=== PATIENT | female | born 1995 | race Caucasian/White ===

== ENCOUNTER 2022-04-27 08:11 | Inpatient (IN) | payer BC, SELFPAY ==
[2022-04-27] VITALS (30 sets, daily range): BP systolic 91–132; BP diastolic 58–95; PULSE 92–130; RESP 16–39; TEMP 34.4–37.9; O2SAT 95–100
--- NOTE | 2022-04-27 | ECHO_ITS ---
Patient Info Name: Jorge Luis Gill Age: 26 years : 1995 Gender: Female Ht: 67 in Wt: 165 lbs BSA: 1.89 m2 HR: 110 bpm BP: 108 / 82 mmHg Heart Rhythm: Sinus Rhythm Technical Quality: Fair Exam Date: 04/27/2022 2:40 PM Exam Location: [facility] Patient Status: Inpatient Admit Date: 04/27/2022 Staff Ordering Physician: Bishop Palacios MD Chemical Process Engineer: Fe Evans RDCS Attending Provider: Mallorie Reid DO Exam Type: CA echo dop color flow w con Study Info Indications I46.9 - Cardiac arrest, cause unspecified Complete two-dimensional, color flow and Doppler transthoracic echocardiogram is performed with contrast to opacify the left ventricle and to improve the deliniation of the left ventricle endocardial borders. Contrast/Agitated Saline Contrast/Ag. Saline: Definity Amount: 3.00 ml Administered By: Fe Evans RDCS Existing IV Access: Yes IV Access Condition: patent with no signs of infiltration Summary 1. Definity contrast injected to improve visualization. 2. Normal left ventricular size and thickness with mildly reduced or at least low normal systolic function. 3. No valvular abnormalities. 4. Normal size and function of the right ventricle. Left Ventricle Left ventricular chamber dimension is normal. Left ventricular systolic function is mildly reduced, estimated at 40-45%. The left ventricular diastolic function is normal. Right Ventricle Right ventricular chamber dimension is normal. Left Atria Left atrial chamber dimension is normal. Right Atria Right atrial chamber dimension is normal. Aortic Valve The aortic valve is normal. Pulmonic Valve The pulmonic valve is normal. Mitral Valve The mitral valve has normal leaflets. Tricuspid Valve The tricuspid valve leaflets are normal. Pericardium/Pleural The pericardium appears normal. Aorta The aortic root size at the sinus of Valsalva is normal. Left Ventricular Outflow Tract Name Value Normal LVOT 2D LVOT Diameter 1.96 cm LVOT Doppler LVOT Peak Gradient 3 mmHg LVOT Mean Gradient 2 mmHg LVOT VTI 12.63 cm LVOT VTI/AV VTI Ratio 0.88 LVOT Stroke Volume 38.24 ml LVOT CO 4.25 l/min LVOT CI 2.25 L/min/m2 Pulmonic Valve Name Value Normal RVOT Doppler RVOT Peak Gradient 1 mmHg PV Doppler PV Peak Gradient 1 mmHg Mitral Valve Name Value Normal
--- NOTE | 2022-04-27 | ECG_ITS ---
Measurements Intervals [place] Rate: 93 P: 72 WY: 121 QRS: 78 QRSD: 97 T: 26 QT: 358 QTc: 447 Interpretive Statements SINUS RHYTHM NONSPECIFIC T-WAVE ABNORMALITY NO PREVIOUS ECG AVAILABLE FOR COMPARISON Electronically Signed On 04-28-2022 7:24:00 DENTAL OFFICE ASSISTANT by Mars Campos M.D.
--- NOTE | ~2022-04-27 | CT_ITS ---
EXAMINATION: CT cervical spine wo con DATE: 04/27/2022 09:44 INDICATION: Unresponsive. TECHNIQUE: Computed tomography (CT) of the cervical spine was performed without intravenous contrast. Automated exposure control and iterative reconstruction technique were employed. The dose-length pro duct was 292.61 mGy-cm. COMPARISON: None FINDINGS: The visualized portions of the lung apices demonstrate patchy airspace and groundglass opac ities and septal thickening. Partially visualized is dental disease. There is 10 degrees levoscoliosi s of cervical spine. Vertebral body heights and intervertebral disc heights are normal. At C7-T1, the re is mild bilateral facet joint osteoarthritis. No neural foraminal stenosis or central canal stenos is. IMPRESSION: 1. No fracture. 2. Cervical levoscoliosis. 3. Bilateral lung disease, consistent with pneumonia versus pulmonary edema. Reviewed, dictated and finalized at location E. ELECTRONIC TECHNICIAN
--- NOTE | ~2022-04-27 | XR_ITS ---
EXAMINATION: XR chest 1V portable DATE: 04/28/2022 06:11 INDICATION: Respiratory failure TECHNIQUE: frontal view of the chest was obtained. COMPARISON: Chest radiograph dated 04/27/2022 FINDINGS: Endotracheal tube tip 1.4 cm above the rema. Nasogastric tube extends below the left hemidiaphragm with distal tip collimated off the study. Slight increase in patchy airspace opacities throughout both lungs but to a lesser degree in the lowe r lung zones. No pleural effusion or pneumothorax. The cardiomediastinal silhouette is normal. Visual ized bones and soft tissues are unremarkable. IMPRESSION: 1. Scattered patchy bilateral airspace opacities concerning for pneumonia. Reviewed, dictated and finalized at location A. F REPORTER
--- NOTE | ~2022-04-27 | CT_ITS ---
EXAMINATION: CT abdomen pelvis wo con DATE: 04/27/2022 09:44 INDICATION: Patient found unresponsive, with lymphomatous on floor adjacent to patient. Vaginal bleed ing. Cardiopulmonary resuscitation was performed in route to the hospital. TECHNIQUE: Computed tomography (CT) of the abdomen and pelvis was performed without intravenous contr ast. Automated exposure control and iterative reconstruction technique were employed. Exam dose: 500 .19 mGy-cm total exam DLP. COMPARISON: 04/27/2022 portable supine AP view of the abdomen / CT abdomen pelvis FINDINGS: Prominent patchy consolidating infiltrates are noted in both lower lobes, right greater dylan n left, with infiltrate also identified in the middle lobe. Given the clinical presentation, aspirati on pneumonitis is a consideration, in addition to extensive bilateral pneumonia. Normal heart size. No pericardial or pleural effusion. A nasogastric tube is noted in the lower body of the stomach. The liver, gallbladder, bile ducts, spleen, pancreas, and adrenal glands and kidneys appear unremarka ble on this limited noncontrast examination. No urinary tract calculus or hydroureteronephrosis is ev ident. There is a catheter and small amount of associated air within the urinary bladder. The uterus and adn exal areas appear unremarkable. There is nondilated fluid containing distal small bowel. There is some fluid content within the cecum . The appendix appears normal. No bowel obstruction or free air is detected IMPRESSION: Extensive patchy consolidation at the lower lobes, particularly dependent regions, as we ll as mild middle lobe infiltrate. Diffusion diagnosis includes aspiration pneumonitis versus bilater al pneumonia NG tube in lower body of stomach Martinez catheter in urinary bladder Reviewed, dictated and finalized at Location A. Reviewed, dictated and finalized at location B. NE DEVELOPER IMPRESSION: Extensive patchy consolidation at the lower lobes, particularly de pendent regions, as well as mild middle lobe infiltrate. Diffusion diagnosis in cludes aspiration pneumonitis versus bilateral pneumonia NG tube in lower body of stomach Martinez catheter in urinary bladder
--- NOTE | ~2022-04-27 | XR_ITS ---
EXAMINATION: XR chest ET placement, XR abdomen NG/feed tube insert DATE: 04/27/2022 08:13 INDICATION: Endotracheal tube placement and nasogastric tube placement post code TECHNIQUE: 1. Portable AP supine view of the chest was obtained. 2. Portable AP supine view of the abdomen was obtained. COMPARISON: None FINDINGS: Endotracheal tube tip 5.6 cm above the rema. Nasogastric tube tip in proximal side port in the body of the stomach. Mild opacities in the bilateral perihilar and right suprahilar regions. No pleural effusion or pneumo thorax. The cardiomediastinal silhouette is normal. Visualized bones and soft tissues are unremarkabl e. No dilated loops of gas-filled bowel in the abdomen. IMPRESSION: 1. Endotracheal tube tip 5.6 cm above the rema which is acceptable, but when clinically stabilized would consider advancement by 3 cm. 2. Mild opacities in the bilateral perihilar regions and right suprahilar regions which could represe nt atelectasis, pneumonia or mild pulmonary edema. Reviewed, dictated and finalized at location A. H WASHER IMPRESSION: 1. Endotracheal tube tip 5.6 cm above the rema which is acceptable, but when clinically stabilized would consider advancement by 3 cm. 2. Mild opacities in the bilateral perihilar regions and right suprahilar regio ns which could represent atelectasis, pneumonia or mild pulmonary edema.
--- NOTE | ~2022-04-27 | XR_ITS ---
EXAMINATION: XR chest 1V portable DATE: 04/30/2022 06:34 INDICATION: Respiratory failure. TECHNIQUE: A single frontal view of the chest was obtained. COMPARISON: Chest single view 04/29/2022, CT abdomen and pelvis 04/27/2022 FINDINGS: There are airspace and interstitial opacities in all lung zones bilaterally with relative s paring of the lung bases. No pleural effusion or pneumothorax. The heart size is normal. IMPRESSION: 1. Stable diffuse lung disease, consistent with pneumonia. Reviewed, dictated and finalized at location A. ING WHEEL RAKER
--- NOTE | ~2022-04-27 | CT_ITS ---
EXAMINATION: CT brain wo con DATE: 04/27/2022 09:43 INDICATION: Unresponsive. TECHNIQUE: Computed tomography (CT) of the head was performed without intravenous contrast. The mA wa s adjusted according to patient size. Iterative reconstruction technique was employed. The dose-lengt h product was 681.00 mGy-cm. COMPARISON: Head CT 06/14/2016 FINDINGS: There is mild motion artifact. There is no intracranial hemorrhage, acute infarction, or ab normal intracranial mass lesion. The ventricles are normal in size. The orbits are normal. Partially visualized is dental disease. There is mild mucosal thickening in the paranasal sinuses. The orbits a re normal. The mastoid air cells are normal. IMPRESSION: 1. Normal brain. Reviewed, dictated and finalized at location E. INTEGRATION ARCHITECT IMPRESSION: 1. Normal brain.
--- NOTE | ~2022-04-27 | US_ITS ---
US renal BI 04/27/2022 19:43 Procedure: Realtime transabdominal ultrasound of the kidneys and bladder. Indication: Acute renal insufficiency Comparison: No prior studies for comparison. Findings: Renal echotexture is normal bilaterally without hydronephrosis, contour deforming mass or r enal calculus. The right kidney measures 11 cm and left kidney measures 10.7 cm. Bladder not well di stended for evaluation. Impression: 1: Unremarkable renal ultrasound. No stones, masses or hydronephrosis. Reviewed, dictated and finalized at location A. ITY ASSEMBLER Impression: 1: Unremarkable renal ultrasound. No stones, masses or hydronephrosis.
--- NOTE | ~2022-04-27 | XR_ITS ---
EXAMINATION: XR chest 1V portable DATE: 05/01/2022 06:37 INDICATION: Respiratory failure. TECHNIQUE: A single frontal view of the chest was obtained. COMPARISON: Chest single view 04/30/2022 FINDINGS: There is a diffuse reticulonodular pattern in the lungs. No pleural effusion or pneumothora x. The heart size is normal. IMPRESSION: 1. Stable diffuse reticulonodular pattern in the lungs, consistent with pneumonia. Reviewed, dictated and finalized at location A. LIANCE AUDITOR IMPRESSION: 1. Stable diffuse reticulonodular pattern in the lungs, consistent with pneumon ia.
--- NOTE | ~2022-04-27 | XR_ITS ---
EXAMINATION: XR chest 1V portable DATE: 04/29/2022 06:25 INDICATION: Respiratory failure TECHNIQUE: frontal view of the chest was obtained. COMPARISON: Chest radiograph dated 04/28/2022 FINDINGS: Slight interval increase in density of patchy bilateral airspace opacities throughout both lungs cons istent with pneumonia. Linear discoid atelectasis at the medial left lung base. No pleural effusion o r pneumothorax. The cardiomediastinal silhouette is normal. IMPRESSION: 1. Slight progression in patchy bilateral airspace disease which based history of unresponsive episod e is most concerning for worsening pneumonia related to aspiration with differential including less l ikely pulmonary edema. Reviewed, dictated and finalized at location A. ER OPERATOR IMPRESSION: 1. Slight progression in patchy bilateral airspace disease which based history of unresponsive episode is most concerning for worsening pneumonia related to a spiration with differential including less likely pulmonary edema.
[2022-04-27 07:54] LABS: Hematocrit 44.9 % (37.0-47.0); Hemoglobin 13.5 g/dL (12.0-15.0); Mean Corpuscular HGB Conc 30.1 g/dl (32-36); Mean Corpuscular Hemoglobin 30.4 pg (26-34); Mean Corpuscular Volume 101.1 fl (80-100); Mean Platelet Volume 10.6 fl (7.4-10.4); Platelet Count Result 255 k/mm3 (150-375); Red Blood Count 4.44 M/mm3 (4.2-5.4); Red Cell Distribution Width 12.5 % (11.5-14.5); White Blood Count 21.3 K/mm3 (4.5-10.0)
--- NOTE | 2022-04-27 07:54 | ED.CPR ---
HPI - CPR General Chief Complaint: Cardiac Arrest/CPR Stated Complaint: cardiac arrest Source: EMS Mode of arrival: EMS History of Present Illness HPI narrative: 30 years old white female came to the emergency room by ambulance with cardiac arrest and CPR was in process. EMS telling me that they got a phone call from somebody who told them that the patient found unresponsive on the floor of the bathroom half naked. And last time he have seen her was last night. No specific or definite duration or times. EMT is telling me that the lanny is confused and poor historian. Narcan was given at that time, and patient was agitated for a minute then became unresponsive, pulseless. Patient was intubated/LMA, CPR protocol applied. On arrival to the ED they monitor showing tachyarrhythmia, pulseless, PEA. CPR protocol in process, V. fib, cardiac shock once, normal sinus rhythm, pulse is back. Blood glucose was 21, D50 IV x2, orotracheal intubation, 7.5 cm, patient noted that she have blood at the vaginal area, pelvic exam showed no intravaginal laceration, blood is coming out of the external os which could be secondary to menstrual cycle. Hypothermia protocol applied. Until this time of dictation, the police department is working on identifying the patient name and her family. Related Data Home Medications Medication Instructions Recorded Confirmed No Home Medications 04/27/22 04/27/22 Allergies Allergy/AdvReac Type Severity Reaction Status Date / Time No Known Allergies Allergy Verified 04/27/22 10:07 Review of Systems Review of Systems: ROS unobtainable: Yes unobtainable due to endotracheal tube, unobtainable due to medical condition and unobtainable due to mental status Exam Narrative: General appearance: Well-developed, well-nourished, unresponsive, pulseless Skin: Normal color Head: Normocephalic, nontraumatic Eyes: Clear conjunctiva pupils are dilated not reactive to light ENT: Oropharynx normal, ears normal, dried blood at the nostrils Neck: No c-collar on on arrival to the ED Chest and respiratory: CPR in process Heart: CPR in process Abdomen: Soft, no organomegaly, no bowel sounds Vascular: Pulseless Musculoskeletal: Unresponsive, pulseless Neurologic: Unresponsive, pulseless Course Consultations Consultation #1: Dr. Hernandez Date: 04/27/22 Time: 10:24 Consultation #2: DR WRIGHT Date: 04/27/22 Time: 10:24 Vital Signs Vital signs: Vital Signs Temperature 34.4 C L 04/27/22 07:33 Pulse Oximetry 98 04/27/22 07:33 Oxygen Delivery Bag Valve Mask 04/27/22 07:33 Temperature 36.0 C L 04/27/22 08:46 Pulse Rate 92 04/27/22 08:48 Respiratory Rate 36 H 04/27/22 08:46 Blood Pressure 132/78 04/27/22 08:46 Pulse Oximetry 100 04/27/22 08:48 Oxygen Delivery Mechanical Ventilation 04/27/22 08:48 Fraction of Inspired Oxygen 100 04/27/22 08:48 Procedures Intubation Intubation #1: Intubation Date: 04/27/22 Intubation Time: 08:55 Time out performed: Yes (10) sedative: none Laryngoscope: fiber optic video scope Tube Size (cm): 7.5 Method of Intubation: orotracheal Number of Attempts: 1 Tube Placement Confirmation: visualized tube passing through cords Patient Tolerated Procedure: well Intubation Complications: none MDM - Cardiac Arrest/CPR Lab Data 04/27/22 07:47 04/27/22 07:46 Labs: Lab Results 04/27/22 04/27/22 04/27/22 Range/Units 07:46 07:46 07:46 WBC (4.5-10.0) K/mm3 RBC (4.2-5.4) M/mm3 Hgb (12.0-15.0) g/dL Hct (37.0-47.0) % MCV (80-100) fl MCH (26-34) pg MCHC (32-36) g/dl RDW (11.5-14.5) % Plt Count (150-375) k/mm3 MPV (7.4-10.4) fl Immature Gran % (Auto) Neut % (Auto)
[2022-04-27 08:09] LABS: INR 1.6; Prothrombin Time 18.7 Seconds (11.1-14.7)
[2022-04-27 08:10] LABS: Alanine Aminotransferase 39 U/L (6-35); Alkaline Phosphatase 74 U/L (38-126); Anion Gap 17 mmol/L (8-16); Aspartate Amino Transferase 72 U/L (14-36); Bilirubin,Total 0.8 mg/dL (0.2-1.3); Blood Urea Nitrogen 14 mg/dL (7-17); Carbon Dioxide 21 mmol/L (22-30); Chloride 99 mmol/L (98-107); Estimated Glomerular Filt Rate 28; Glucose 54 mg/dL (65-110); Lipase 85 U/L (23-300); Partial Thromboplastin Time 36.1 SECONDS (22.3-36.8); Sodium 137 mmol/L (137-145)
[2022-04-27] MEDS: MIDAZOLAM HCL (*CRX) 2 MG/2 ML VIAL 4 MG (08:10)
[2022-04-27] MEDS: MIDAZOLAM HCL (*CRX) 10 MG/2 ML VIAL 4 MG IV PUSH ×2 (08:10→08:33)
[2022-04-27 08:22] LABS: Band Neutrophils Percent 30 % (0-6); Lymphocytes Absolute Manual 3.19 K/mm3 (1.1-4.5); Monocytes Absolute Manual 2.55 K/mm3 (0.1-0.90); Monocytes Percent Manual 12 % (3-9); Neutrophils Absolute Manual 15.54 K/mm3 (1.7-7.2); Neutrophils Percent Manual 43 % (46-73); Platelet Estimate Adequate (Adequate); Schistocytes None Seen (NORMAL); Total Cells Counted 100
[2022-04-27 08:25] LABS: Troponin I 0.146 ng/mL (0.000-0.034)
[2022-04-27] MEDS: DEXTROSE 50% 25 GM/50 ML SYRINGE IV PUSH (08:28)
[2022-04-27] MEDS: SODIUM CHLORIDE 0.9% IV 1,000 ML 999 ML (08:29)
[2022-04-27 08:35] LABS: Appearance Urine Cloudy (Clear); Bilirubin Urine Negative (Negative); Blood Urine 2+ (Negative); Color Urine Yellow (Yellow); Glucose Urine UA Negative (Negative); Ketones Urine Negative (Negative); Leukocyte Esterase Ur Negative LEU/UL (Negative); Nitrate Urine Negative (Negative); Protein Urine 3+ mg/dL (Negative); Specific Grav Ur >= 1.030 (1.001-1.035)
[2022-04-27 08:37] LABS: Alveolar/Arterial O2 Gradient 493.5 mmHg; Base Excess ABG -16.7 mEq/l (+/-2.0); Carboxyhemoglobin 1.1 % THb (0-2.0); Fractional Inspired Oxygen 100 %; HCO3 ABG 13.8 mEq/l (22.0-26.0); Methemoglobin ABG 0.3 %THb (0-1.5); Oxygen Content ABG 18.2 %vol (16.0-22.0); Oxygen Saturation ABG 98.3 % (95.0-100.0); Oxyhemoglobin 96.5 % THb (90.0-100.0); PCO2 ABG 51.8 mmHg (35.0-45.0); PO2 ABG 167.7 mmHg (80.0-100.0); PO2 FiO2 Ratio Arterial Blood 1.68 %; Reduced Hemoglobin 2.1 %THb (0-5.0); Total Hemoglobin 13.2 g/dL (12.0-18.0)
[2022-04-27 08:37] LABS: Glucose Point of Care 353 mg/dl (65-105)
[2022-04-27 08:38] LABS: Device VENTILATOR; Modified Allen's Test Pass; Site Drawn RIGHT RADIAL; pH ABG 7.043 (7.350-7.450)
[2022-04-27 08:39] LABS: Arterial Blood Gas PEEP 5 cmH2O; Arterial Blood Gas Tidal Volume 450 ml; Arterial Blood Gas Vent Mode CMV; Arterial Blood Gas Ventilator rate 15 /MIN
[2022-04-27 08:41] LABS: Creatine Kinase 169 U/L (30-135); Ethanol < 10 mg/dL (<10)
[2022-04-27] MEDS: MIDAZOLAM 100MG/NS 100ML(*CRX) 100 MG/100 ML BAG IV CONT (08:42)
[2022-04-27 08:48] LABS: Lactic Acid Reflex 13.1 mmol/L (0.7-2.0)
[2022-04-27 08:54] LABS: Bacteria Urine 3+ /hpf; Hyaline Casts Urine 30-49 /lpf; Mucus Urine Heavy /lpf; RBC Urine 21-50 /hpf (0-2); Squamous Epithelial Cell Urine Few /hpf (Few); Transitional Epi Cells Urine Rare /hpf (None Seen); WBC Urine 51-75 /hpf
[2022-04-27 08:56] LABS: Barbiturate Screen Urine Negative (Negative); Benzodiazepines Screen Urine Negative (Negative)
[2022-04-27 08:57] LABS: Cannabinoid Screen Urine Positive (Negative); Cocaine Screen Urine Negative (Negative); Methadone Screen Urine Negative (Negative); Opiate Screen Urine Negative (Negative); Phencyclidine Screen Urine Negative (Negative)
[2022-04-27 09:01] LABS: Add Urine Microscopic? YES
[2022-04-27] MEDS: MIDAZOLAM HCL (*CRX) 2 MG/2 ML VIAL 4 MG IV PUSH (09:20)
[2022-04-27 09:44] LABS: Influenza A QL RT-PCR Negative (Negative); Influenza B QL RT-PCR Negative (Negative); RSV RNA, RT-PCR Negative (Negative); SARS-CoV-2 RNA PCR Negative
[2022-04-27 10:00] LABS: Alveolar/Arterial O2 Gradient 507.6 mmHg; Base Excess ABG -8.4 mEq/l (+/-2.0); Fractional Inspired Oxygen 90 %; HCO3 ABG 18.6 mEq/l (22.0-26.0); Oxygen Content ABG 18.7 %vol (16.0-22.0); Oxygen Saturation ABG 95.4 % (95.0-100.0); Oxyhemoglobin 94.8 % THb (90.0-100.0); PCO2 ABG 43.9 mmHg (35.0-45.0); PO2 ABG 89.1 mmHg (80.0-100.0); PO2 FiO2 Ratio Arterial Blood 0.99 %
[2022-04-27 10:01] LABS: Arterial Blood Gas PEEP 5 cmH2O; Arterial Blood Gas Tidal Volume 400 ml; Arterial Blood Gas Vent Mode CMV; Arterial Blood Gas Ventilator rate 18 /MIN; Device VENTILATOR; Modified Allen's Test Pass; Site Drawn RIGHT RADIAL; pH ABG 7.245 (7.350-7.450)
--- NOTE | 2022-04-27 10:09 | PC.NURSE ---
Pt father here at this time. He states he saw her yesterday. He states that she has struggled with drugs for a while. He states she doesn't have any allergies. Past medical history only includes hepatitis A
[2022-04-27 10:25] LABS: Amphetamine Screen Urine Positive (Negative)
[2022-04-27 10:37] LABS: Glucose Point of Care 143 mg/dl (65-105)
[2022-04-27 10:52] LABS: Reflex Lactic Acid Yes or No Add Lactic
--- NOTE | 2022-04-27 11:38 | WPDCNINT ---
Assessment and Plan Assessment and plan (1) Cardiac arrest: Code(s): I46.9 - Cardiac arrest, cause unspecified Status: Acute Assessment and Plan: I suspect drug overdose in the most likely possibility as patient is otherwise a healthy 26-year-old female. Hypoglycemia could be the result of drug abuse or could have been the etiology. EKG reviewed Serial troponins Check echocardiogram Hypoglycemia is being treated (2) Acute respiratory failure: Code(s): J96.00 - Acute respiratory failure, unspecified whether with hypoxia or hypercapnia Status: Acute Assessment and Plan: Acute Respiratory failure secondary to cardiac arrest, altered mental status aspiration pneumonia Continue full mechanical ventilation support to prevent hypoxemia/hypercarbia and end organ damage. ABG reviewed -increase PEEP to 8, decrease FiO2 to 75%. On 400 tidal volume in 18 of rate Repeat ABG ordered Chest x-ray reviewed -advance ET tube by 3 cm Low tidal volume ventilation strategy to prevent volutrauma Bronchodilators (3) Sepsis: Code(s): A41.9 - Sepsis, unspecified organism Status: Acute Assessment and Plan: Secondary to aspiration pneumonia Obtain blood and urine cultures Empiric Zosyn IV fluids Monitor lactic acid level which is improving Blood pressure adequate at this time and does not eat vasopressors (4) Aspiration pneumonia: Code(s): J69.0 - Pneumonitis due to inhalation of food and vomit Status: Acute Assessment and Plan: See above (5) Leukocytosis: Code(s): D72.829 - Elevated white blood cell count, unspecified Status: Acute Assessment and Plan: Likely secondary to sepsis, aspiration pneumonia and stress response See above (6) Acute kidney injury: Code(s): N17.9 - Acute kidney failure, unspecified Status: Acute Assessment and Plan: Likely secondary to cardiac arrest and sepsis CK mildly elevated monitor CK Check renal ultrasound IV fluids Check urine electrolyte Monitor urine output electrolytes and creatinine (7) Elevated liver enzymes: Code(s): R74.8 - Abnormal levels of other serum enzymes Status: Acute Assessment and Plan: Could be secondary to shock liver Check hepatitis panel beater LFTs Will obtain imaging if continues to increase (8) Acidosis: Code(s): E87.20 - Acidosis, unspecified Status: Acute Assessment and Plan: Patient presented with mixed respiratory metabolic acidosis Ventilator has been adjusted Repeat ABG ordered (9) Hypoglycemia: Code(s): E16.2 - Hypoglycemia, unspecified Status: Acute Assessment and Plan: On presentation patient was hypoglycemic and was given dextrose push Continue q.1 hour monitoring Start D5 normal saline (10) Encephalopathy: Code(s): G93.40 - Encephalopathy, unspecified Status: Acute Assessment and Plan: Multifactorial as drug abuse and overdose is suspected. Patient did respond to Narcan which will confirm opioid use UDS is positive for amphetamine and cannabinoid Patient was also hypoglycemic Head CT is negative Currently sedated (11) Drug abuse: Code(s): F19.10 - Other psychoactive substance abuse, uncomplicated Status: Acute Assessment and Plan: UDS is positive for cannabinoids and amphetamine Details unknown Screen for HIV and hepatitis Plan DVT prophylaxis -Lovenox Stress ulcer prophylaxis -PPI Nutrition -NPO. Code Status - Full Code test done in the ER was negative I spoke to patient's father by phone and updated him with patient's current status including cardiac arrest, acute renal failure, sepsis, aspiration pneumonia, acute respiratory failure and possibility of hypoxic injury although patient did with purposeful movement in ER and in ICU Total Critical Care Time -60 minutes Due to a high probability of clinically significant, life threate
[2022-04-27] MEDS: LACTATED RINGERS 1,000 ML 999 ML IV CONT (11:39)
[2022-04-27 12:15] LABS: Lactic Acid Reflex 2.5 mmol/L (0.7-2.0)
[2022-04-27] MEDS: DEXTROSE 5%/LACTATED RINGERS 1,000 ML 100 ML IV CONT ×2 (12:30→22:10)
--- NOTE | 2022-04-27 12:31 | ADMGEN ---
This patient, Jorge Luis Gill, was admitted to Intensive Care Unit-10. Patient/family oriented to hospital policies and general routines including ID bracelet, bed and alarms, visiting hours, pain management, procedures, bathroom and other care routines, personal items, smoking policy, room service/diet, and visiting hours. Information on how to activate the Rapid Response Team has been discussed. Patient/Family are encouraged to report perceived risks to care and to ask questions if they do not understand what they are told or what they should do.
[2022-04-27 12:36] LABS: Glucose Point of Care 115 mg/dl (65-105)
[2022-04-27 12:56] LABS: Acetaminophen < 10 ug/mL (10-30); Anion Gap 7 mmol/L (8-16); Blood Urea Nitrogen 19 mg/dL (7-17); Calcium 7.5 mg/dL (8.4-10.2); Carbon Dioxide 24 mmol/L (22-30); Chloride 104 mmol/L (98-107); Estimated CRCL calculation 57 ml/min; Estimated Glomerular Filt Rate 50; Glucose 129 mg/dL (65-110); HIV 1/2 Ab P24 Ag Result Negative (Negative); Sodium 135 mmol/L (137-145)
[2022-04-27 13:12] LABS: Glucose Point of Care 117 mg/dl (65-105)
[2022-04-27 13:13] LABS: Hepatitis B Surface Antigen Negative (Negative)
[2022-04-27 13:20] LABS: HAV RESULT Negative (Negative); Hepatitis B Core IgM Result Negative (Negative); Troponin I 0.245 ng/mL (0.000-0.034)
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
[2022-04-27 13:31] LABS: Hepatitis C Virus Antibody Negative (Negative)
[2022-04-27 14:04] LABS: Creatinine Urine 62.5 mg/dL
[2022-04-27 14:05] LABS: Sodium Urine Random 121 meq/L
[2022-04-27 14:10] LABS: Alveolar/Arterial O2 Gradient 246.2 mmHg; Base Excess ABG -1.5 mEq/l (+/-2.0); Device VENTILATOR; Fractional Inspired Oxygen 75 %; HCO3 ABG 25.6 mEq/l (22.0-26.0); Modified Allen's Test Pass; Oxygen Saturation ABG 99.4 % (95.0-100.0); Oxyhemoglobin 98.4 % THb (90.0-100.0); PCO2 ABG 52.9 mmHg (35.0-45.0); PO2 ABG 232.4 mmHg (80.0-100.0); Site Drawn LEFT RADIAL; Total Hemoglobin 14.1 g/dL (12.0-18.0); pH ABG 7.303 (7.350-7.450)
[2022-04-27 14:11] LABS: Arterial Blood Gas PEEP 8 cmH2O; Arterial Blood Gas Tidal Volume 400 ml; Arterial Blood Gas Vent Mode CMV; Arterial Blood Gas Ventilator rate 18 /MIN
[2022-04-27 14:28] LABS: Glucose Point of Care 132 mg/dl (65-105)
[2022-04-27] MEDS: PERFLUTREN LIPID MICROSPHERES 1.5 ML VIAL DILUTED TO 10 ML TOTAL VOLUME IV PUSH (15:15)
[2022-04-27 15:55] LABS: Glucose Point of Care 124 mg/dl (65-105)
[2022-04-27] MEDS: FENTANYL 2,500MCG/NS250ML(*CRX 2,500 MCG/250 ML BAG 15 MCG IV CONT (16:41)
[2022-04-27 18:11] LABS: Glucose Point of Care 126 mg/dl (65-105)
[2022-04-27] MEDS: MINERAL OIL/WHITE PETROLATUM OINTMENT 1 APPLIC EACH EYE (20:39)
[2022-04-27 22:07] LABS: Glucose Point of Care 112 mg/dl (65-105)
[2022-04-27 22:07] LABS: Glucose Point of Care 94 mg/dl (65-105)
[2022-04-27 23:14] LABS: Lactic Acid Reflex 1.6 mmol/L (0.7-2.0)
[2022-04-28] VITALS (31 sets, daily range): BP systolic 91–108; BP diastolic 58–75; PULSE 73–120; RESP 7–22; TEMP 36.3–38.3; O2SAT 92–100; BMI 26.0
[2022-04-28] MEDS: MIDAZOLAM 100MG/NS 100ML(*CRX) 100 MG/100 ML BAG 6 MG IV CONT (00:08)
[2022-04-28 01:55] LABS: Lactic Acid Reflex 1.6 mmol/L (0.7-2.0)
[2022-04-28 02:11] LABS: Troponin I 0.291 ng/mL (0.000-0.034)
[2022-04-28 02:21] LABS: Glucose Point of Care 98 mg/dl (65-105)
[2022-04-28 02:21] LABS: Glucose Point of Care 115 mg/dl (65-105)
[2022-04-28 04:01] LABS: Glucose Point of Care 103 mg/dl (65-105)
[2022-04-28 04:26] LABS: Hematocrit 39.2 % (37.0-47.0); Hemoglobin 12.5 g/dL (12.0-15.0); Mean Corpuscular HGB Conc 31.9 g/dl (32-36); Mean Corpuscular Hemoglobin 30.5 pg (26-34); Mean Corpuscular Volume 95.6 fl (80-100); Mean Platelet Volume 11.6 fl (7.4-10.4); Platelet Count Result 183 k/mm3 (150-375); Red Cell Distribution Width 12.8 % (11.5-14.5); White Blood Count 23.9 K/mm3 (4.5-10.0)
[2022-04-28 04:27] LABS: Creatine Kinase 1494 U/L (30-135); Magnesium 1.6 mg/dL (1.6-2.3)
[2022-04-28] MEDS: ACETAMINOPHEN ELIXIR 325 MG/10.15 ML UDC 650 MG FEED TUBE ×2 (04:57→14:28)
[2022-04-28 06:02] LABS: Alveolar/Arterial O2 Gradient 94.2 mmHg; Base Excess ABG -0.3 mEq/l (+/-2.0); Carboxyhemoglobin 0.3 % THb (0-2.0); Fractional Inspired Oxygen 30 %; HCO3 ABG 25.5 mEq/l (22.0-26.0); Methemoglobin ABG 0.2 %THb (0-1.5); Oxygen Content ABG 16.2 %vol (16.0-22.0); Oxygen Saturation ABG 91.9 % (95.0-100.0); Oxyhemoglobin 91.1 % THb (90.0-100.0); PCO2 ABG 46.4 mmHg (35.0-45.0); PO2 ABG 65.2 mmHg (80.0-100.0); PO2 FiO2 Ratio Arterial Blood 2.17 %; Reduced Hemoglobin 8.4 %THb (0-5.0); Total Hemoglobin 12.6 g/dL (12.0-18.0); pH ABG 7.358 (7.350-7.450)
[2022-04-28 06:03] LABS: Arterial Blood Gas PEEP 8 cmH2O; Arterial Blood Gas Tidal Volume 400 ml; Arterial Blood Gas Vent Mode CMV; Arterial Blood Gas Ventilator rate 22 /MIN; Device VENTILATOR; Modified Allen's Test Pass; Site Drawn RIGHT RADIAL
[2022-04-28 06:10] LABS: Glucose Point of Care 105 mg/dl (65-105)
[2022-04-28] MEDS: FENTANYL 2,500MCG/NS250ML(*CRX 2,500 MCG/250 ML BAG 20 MCG IV CONT (06:25)
[2022-04-28] MEDS: DEXTROSE 5%/LACTATED RINGERS 1,000 ML 150 ML IV CONT (07:46)
[2022-04-28 07:47] LABS: Alanine Aminotransferase 54 U/L (6-35); Albumin Level 3.3 g/dL (3.5-5.1); Alkaline Phosphatase 61 U/L (38-126); Anion Gap 11 mmol/L (8-16); Aspartate Amino Transferase 114 U/L (14-36); Bilirubin,Total 1.3 mg/dL (0.2-1.3); Blood Urea Nitrogen 17 mg/dL (7-17); Calcium 8.2 mg/dL (8.4-10.2); Carbon Dioxide 21 mmol/L (22-30); Chloride 111 mmol/L (98-107); Estimated CRCL calculation 81 ml/min; Estimated Glomerular Filt Rate > 60; Glucose 96 mg/dL (65-110); Potassium 4.2 mmol/L (3.4-5.0); Sodium 143 mmol/L (137-145)
[2022-04-28 07:57] LABS: Glucose Point of Care 122 mg/dl (65-105)
[2022-04-28] MEDS: ENOXAPARIN 40 MG/0.4 ML SYRINGE SUB-Q (08:00)
[2022-04-28] MEDS: PANTOPRAZOLE SODIUM IV 40 MG VIAL IV PUSH (08:00)
[2022-04-28] MEDS: MINERAL OIL/WHITE PETROLATUM OINTMENT 1 APPLIC EACH EYE (08:02)
--- NOTE | 2022-04-28 09:05 | WPDINTPN ---
Progress Note: A&P Assessment and Plan (1) Cardiac arrest: Code(s): I46.9 - Cardiac arrest, cause unspecified Status: Acute Assessment and Plan: Secondary to drug overdose in the most likely possibility as patient is otherwise a healthy 26-year-old female. Hypoglycemia could be the result of drug abuse or could have been the etiology. EKG reviewed Serial troponins have been flat Echocardiogram 1. Definity contrast injected to improve visualization. ? 2. Normal left ventricular size and thickness with mildly reduced or at least low normal systolic function. ? 3. No valvular abnormalities. ? 4. Normal size and function of the right ventricle. Hypoglycemia is being treated with dextrose (2) Acute respiratory failure: Code(s): J96.00 - Acute respiratory failure, unspecified whether with hypoxia or hypercapnia Status: Acute Assessment and Plan: Acute Respiratory failure secondary to cardiac arrest, altered mental status aspiration pneumonia Patient was on CMV. PEEP to 8, decrease FiO2 to 30%. On 400 tidal volume in 18 of rate I tried to do a weaning trial but patient was not cooperative and agitated and trying to sit up and come out of bed. She was pulling on lines and tubes. Patient was strong, following commands and had a strong cough. I chose to extubate the patient. Patient is now extubated. She is drowsy but wakes up easily and follows commands. She is now Ventimask and maintaining oxygenation respiratory distress. Continue to monitor closely Chest x-ray reviewed and shows bilateral infiltrate concerning of pneumonia Bronchodilators (3) Sepsis: Code(s): A41.9 - Sepsis, unspecified organism Status: Acute Assessment and Plan: Secondary to aspiration pneumonia Pending blood and urine cultures Empiric Zosyn IV fluids to be continued Lactic acid level has normalized Blood pressure adequate at this time and does not need vasopressors (4) Aspiration pneumonia: Code(s): J69.0 - Pneumonitis due to inhalation of food and vomit Status: Acute Assessment and Plan: See above (5) Leukocytosis: Code(s): D72.829 - Elevated white blood cell count, unspecified Status: Acute Assessment and Plan: Likely secondary to sepsis, aspiration pneumonia and stress response See above (6) Acute kidney injury: Code(s): N17.9 - Acute kidney failure, unspecified Status: Acute Assessment and Plan: Likely secondary to cardiac arrest and sepsis and rhabdomyolysis monitor CK Creatinine has normalized Normal renal ultrasound Continue IV fluids Check urine electrolyte Monitor urine output electrolytes and creatinine (7) Elevated liver enzymes: Code(s): R74.8 - Abnormal levels of other serum enzymes Status: Acute Assessment and Plan: Could be secondary to shock liver 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 Patient did respond to Narcan which will confirm opioid use UDS is positive for amphetamine and cannabinoid Patient was also hypoglycemic Head CT is negative Now patient is drowsy but arousable. She follows commands and nodes her head appropriately to questions. She was on sedation so it will take some time for all the sedatives and admits to wear of (11) Drug abuse: Code(s): F19.10 - Other
[2022-04-28] MEDS: DEXTROSE 5%/0.45% SOD CHL 1,000 ML 100 ML IV CONT ×2 (09:28→19:47)
[2022-04-28 11:48] LABS: Glucose Point of Care 89 mg/dl (65-105)
--- NOTE | 2022-04-28 12:09 | PCFNICU ---
ICU Rounding Note: Pt current nutrition is NPO Nutrition recommendation: Advance diet as tolerated per MD orders. Last recorded weight is 75.5 kg. Bowel Motility:No Bm reported. Labs Reviewed:Alb 3.3 Meds Noted:Lovenox, Protonix, Zosyn Skin: WNL Additional Notes: Patient has been extubated this morning. Diet order: NPO at this time. Following daily in ICU rounds.
[2022-04-28 16:31] LABS: Glucose Point of Care 111 mg/dl (65-105)
--- NOTE | 2022-04-28 16:55 | PC.NURSE ---
This patient, Jorge Luis Gill, was transferred to [[id number] ] on 04/28/22 at 1645. Personal belongings sent with patient. Report given to [ Lyudmila Marina RN @ [phone]]. Appropriate documentation sent with patient.
--- NOTE | 2022-04-28 17:00 | ADMGEN ---
This patient, Jorge Luis Gill, was admitted to IMU Room 213-01. Patient/family oriented to hospital policies and general routines including ID bracelet, bed and alarms, visiting hours, pain management, procedures, bathroom and other care routines, personal items, smoking policy, room service/diet, and visiting hours. Information on how to activate the Rapid Response Team has been discussed. Patient/Family are encouraged to report perceived risks to care and to ask questions if they do not understand what they are told or what they should do. Pt resting with eyes closed. Responds to verbal stimuli. No distress noted. Resp even and non labored.
[2022-04-28 21:02] LABS: Glucose Point of Care 96 mg/dl (65-105)
[2022-04-29] VITALS (13 sets, daily range): BP systolic 96–119; BP diastolic 43–58; PULSE 71–93; RESP 16–20; TEMP 36.5–37.2; O2SAT 95–99
[2022-04-29 00:35] LABS: Glucose Point of Care 101 mg/dl (65-105)
[2022-04-29 04:47] LABS: Glucose Point of Care 88 mg/dl (65-105)
[2022-04-29 05:25] LABS: Alveolar/Arterial O2 Gradient 182.8 mmHg; Base Excess ABG 2.3 mEq/l (+/-2.0); Carboxyhemoglobin 0.6 % THb (0-2.0); Fractional Inspired Oxygen 50 %; HCO3 ABG 27.5 mEq/l (22.0-26.0); Methemoglobin ABG 0.2 %THb (0-1.5); Oxygen Content ABG 18.1 %vol (16.0-22.0); Oxygen Saturation ABG 98.4 % (95.0-100.0); Oxyhemoglobin 97.1 % THb (90.0-100.0); PCO2 ABG 44.8 mmHg (35.0-45.0); PO2 ABG 123.3 mmHg (80.0-100.0); PO2 FiO2 Ratio Arterial Blood 2.47 %; Reduced Hemoglobin 2.1 %THb (0-5.0); Total Hemoglobin 13.1 g/dL (12.0-18.0); pH ABG 7.406 (7.350-7.450)
[2022-04-29 05:25] LABS: Hematocrit 37.4 % (37.0-47.0); Hemoglobin 11.9 g/dL (12.0-15.0); Mean Corpuscular HGB Conc 31.8 g/dl (32-36); Mean Corpuscular Hemoglobin 29.7 pg (26-34); Mean Corpuscular Volume 93.3 fl (80-100); Mean Platelet Volume 11.2 fl (7.4-10.4); Platelet Count Result 169 k/mm3 (150-375); Red Blood Count 4.01 M/mm3 (4.2-5.4); Red Cell Distribution Width 12.8 % (11.5-14.5); White Blood Count 15.9 K/mm3 (4.5-10.0)
[2022-04-29 05:27] LABS: Device VENTURI MASK; Modified Allen's Test Pass; Site Drawn LEFT RADIAL
[2022-04-29 05:37] LABS: Alanine Aminotransferase 45 U/L (6-35); Albumin Level 3.5 g/dL (3.5-5.1); Alkaline Phosphatase 68 U/L (38-126); Anion Gap 4 mmol/L (8-16); Aspartate Amino Transferase 78 U/L (14-36); Bilirubin,Total 1.5 mg/dL (0.2-1.3); Blood Urea Nitrogen 9 mg/dL (7-17); Calcium 8.1 mg/dL (8.4-10.2); Carbon Dioxide 29 mmol/L (22-30); Chloride 104 mmol/L (98-107); Creatine Kinase 659 U/L (30-135); Estimated CRCL calculation 117 ml/min; Estimated Glomerular Filt Rate > 60; Glucose 106 mg/dL (65-110); Magnesium 1.8 mg/dL (1.6-2.3); Potassium 3.8 mmol/L (3.4-5.0); Sodium 137 mmol/L (137-145)
[2022-04-29 08:28] LABS: Glucose Point of Care 96 mg/dl (65-105)
--- NOTE | 2022-04-29 08:30 | ECG_ITS ---
Measurements Intervals Sandy Rate: 73 P: 46 NC: 97 QRS: 67 QRSD: 89 T: 41 QT: 382 QTc: 423 Interpretive Statements SINUS RHYTHM WITH SHORT NC INTERVAL OTHERWISE NORMAL ECG COMPARED TO ECG 04/27/2022 07:57:50 LESS BASELINE ARTIFACT ON THE CURRENT TRACING Electronically Signed On 04-30-2022 8:14:19 DIAGNOSTIC IMAGING MANAGER by Mars Campos M.D.
[2022-04-29] MEDS: PANTOPRAZOLE SODIUM IV 40 MG VIAL IV PUSH (08:34)
[2022-04-29] MEDS: ENOXAPARIN 40 MG/0.4 ML SYRINGE SUB-Q (08:34)
[2022-04-29 12:39] LABS: Glucose Point of Care 86 mg/dl (65-105)
--- NOTE | 2022-04-29 12:54 | PM.IMPN ---
Progress Note: A&P Assessment and Plan (1) Cardiac arrest: Code(s): I46.9 - Cardiac arrest, cause unspecified Status: Acute Assessment and Plan: Secondary to drug overdose in the most likely possibility as patient is otherwise a healthy 26-year-old female. Hypoglycemia could be the result of drug abuse or could have been the etiology. EKG reviewed Serial troponins have been flat Echocardiogram 1. Definity contrast injected to improve visualization. ? 2. Normal left ventricular size and thickness with mildly reduced or at least low normal systolic function. ? 3. No valvular abnormalities. ? 4. Normal size and function of the right ventricle. Hypoglycemia is being treated with dextrose (2) Sepsis: Code(s): A41.9 - Sepsis, unspecified organism Status: Acute Assessment and Plan: Secondary to aspiration pneumonia Pending blood and urine cultures Empiric Zosyn IV fluids to be continued Lactic acid level has normalized Blood pressure adequate at this time and does not need vasopressors (3) Aspiration pneumonia: Code(s): J69.0 - Pneumonitis due to inhalation of food and vomit Status: Acute Assessment and Plan: See above (4) Leukocytosis: Code(s): D72.829 - Elevated white blood cell count, unspecified Status: Acute Assessment and Plan: Likely secondary to sepsis, aspiration pneumonia and stress response See above (5) Acute kidney injury: Code(s): N17.9 - Acute kidney failure, unspecified Status: Acute Assessment and Plan: And gentle hydration. Avoid nephrotoxic drugs. Monitor antihypertensive drugs Avoid NSAIDs. Routine CMP monitor GFR. Monitor electrolytes potassium levels. 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 Will obtain imaging if continues to increase (7) Acidosis: Code(s): E87.20 - Acidosis, unspecified Status: Acute Assessment and Plan: Patient presented with mixed respiratory metabolic acidosis Improved (8) Hypoglycemia: Code(s): E16.2 - Hypoglycemia, unspecified Status: Acute Assessment and Plan: On presentation patient was hypoglycemic and was given dextrose push Continue q2 hour monitoring Continue D5 LR (9) Encephalopathy: Code(s): G93.40 - Encephalopathy, unspecified Status: Acute Assessment and Plan: positive for amphetamine and cannabinoid Patient was also hypoglycemic Head CT is negative (10) Drug abuse: Code(s): F19.10 - Other psychoactive substance abuse, uncomplicated Status: Acute Assessment and Plan: Negative for HIV and hepatitis screen Plan DVT prophylaxis. GI prophylaxis. All records reviewed Discussed plan of care with the nursing staff and with the patient in detail. Answered all questions and concerns from the patient. All labs have been reviewed. Code status updated also spoke to the family who is at bedside discussed all details dictation may have been done utilizing a voice recognition system. Attempts have been made to correct errors. However, there may be uncorrected grammatical, spelling, and recognition errors present. Time Spent With Patient Time with patient: 25 - 35 minutes Subjective Date/time seen: 04/29/22 12:54 Interval history: patient alert and awake cooperative doing well comfortable in bed family bedside Review of Systems Review of Systems: All systems reviewed & are unremarkable except as noted in HPI and below Exam Const: General: comfortable and no acute distress HENMT: Ears: TM's normal bilaterally Mouth: Yes moist mucous membranes Eyes: General: appearance normal, both eyes
[2022-04-29 16:34] LABS: Glucose Point of Care 186 mg/dl (65-105)
[2022-04-29] MEDS: DEXTROSE 5%/0.45% SOD CHL 1,000 ML 100 ML IV CONT ×2 (17:29→23:57)
[2022-04-29 20:44] LABS: Glucose Point of Care 108 mg/dl (65-105)
[2022-04-29 23:31] LABS: Glucose Point of Care 104 mg/dl (65-105)
[2022-04-30] VITALS (18 sets, daily range): BP systolic 89–115; BP diastolic 40–62; PULSE 58–99; RESP 12–20; TEMP 36.5–36.9; O2SAT 94–100
[2022-04-30 05:07] LABS: Alveolar/Arterial O2 Gradient 37.3 mmHg; Base Excess ABG 1.7 mEq/l (+/-2.0); Carboxyhemoglobin 0.3 % THb (0-2.0); Fractional Inspired Oxygen 21 %; Oxygen Content ABG 15.7 %vol (16.0-22.0); Oxygen Saturation ABG 95.2 % (95.0-100.0); Oxyhemoglobin 94.2 % THb (90.0-100.0); PO2 ABG 70.5 mmHg (80.0-100.0); PO2 FiO2 Ratio Arterial Blood 3.36 %; Reduced Hemoglobin 5.5 %THb (0-5.0); Total Hemoglobin 11.8 g/dL (12.0-18.0); pH ABG 7.472 (7.350-7.450)
[2022-04-30 05:08] LABS: Site Drawn RIGHT RADIAL
[2022-04-30 05:09] LABS: Device ROOM AIR; Modified Allen's Test Pass
[2022-04-30 06:20] LABS: Glucose Point of Care 119 mg/dl (65-105)
[2022-04-30 08:02] LABS: Hematocrit 33.9 % (37.0-47.0); Mean Corpuscular HGB Conc 32.4 g/dl (32-36); Mean Corpuscular Hemoglobin 30.5 pg (26-34); Mean Corpuscular Volume 93.9 fl (80-100); Mean Platelet Volume 10.9 fl (7.4-10.4); Platelet Count Result 201 k/mm3 (150-375); Red Blood Count 3.61 M/mm3 (4.2-5.4); Red Cell Distribution Width 12.6 % (11.5-14.5)
[2022-04-30 08:17] LABS: Alanine Aminotransferase 37 U/L (6-35); Albumin Level 3.6 g/dL (3.5-5.1); Alkaline Phosphatase 56 U/L (38-126); Anion Gap 4 mmol/L (8-16); Aspartate Amino Transferase 54 U/L (14-36); Bilirubin,Total 1.2 mg/dL (0.2-1.3); Blood Urea Nitrogen 6 mg/dL (7-17); Calcium 8.3 mg/dL (8.4-10.2); Carbon Dioxide 26 mmol/L (22-30); Chloride 107 mmol/L (98-107); Creatine Kinase 339 U/L (30-135); Estimated CRCL calculation 117 ml/min; Estimated Glomerular Filt Rate > 60; Glucose 111 mg/dL (65-110); Potassium 3.7 mmol/L (3.4-5.0); Sodium 137 mmol/L (137-145)
[2022-04-30 08:24] LABS: Glucose Point of Care 94 mg/dl (65-105)
[2022-04-30] MEDS: ENOXAPARIN 40 MG/0.4 ML SYRINGE SUB-Q (09:37)
[2022-04-30] MEDS: PANTOPRAZOLE SODIUM IV 40 MG VIAL IV PUSH (09:38)
[2022-04-30 11:53] LABS: Glucose Point of Care 172 mg/dl (65-105)
--- NOTE | 2022-04-30 12:37 | PM.IMPN ---
Progress Note: A&P Assessment and Plan (1) Cardiac arrest: Code(s): I46.9 - Cardiac arrest, cause unspecified Status: Acute Assessment and Plan: Secondary to drug overdose in the most likely possibility as patient is otherwise a healthy 26-year-old female. Hypoglycemia could be the result of drug abuse or could have been the etiology. EKG reviewed Serial troponins have been flat Echocardiogram normal LV functions Hypoglycemia is being treated with dextrose (2) Sepsis: Code(s): A41.9 - Sepsis, unspecified organism Status: Acute Assessment and Plan: Secondary to aspiration pneumonia sputum and blood cultures show Staph aureus sensitive vanco are Cipro / clinda/ will talk pharmacy for possible po options Zosyn currently would like to switch to p.o. Hep-Lock encourage patient to drink oral Lactic acid level has normalized Blood pressure adequate at this time (3) Aspiration pneumonia: Code(s): J69.0 - Pneumonitis due to inhalation of food and vomit Status: Acute Assessment and Plan: See above (4) Leukocytosis: Code(s): D72.829 - Elevated white blood cell count, unspecified Status: Acute Assessment and Plan: Likely secondary to sepsis, aspiration pneumonia and stress response See above (5) Acute kidney injury: Code(s): N17.9 - Acute kidney failure, unspecified Status: Acute Assessment and Plan: And gentle hydration. Avoid nephrotoxic drugs. Monitor antihypertensive drugs Avoid NSAIDs. Routine CMP monitor GFR. Monitor electrolytes potassium levels. Dose antibiotics depending on creatinine clearance (6) Elevated liver enzymes: Code(s): R74.8 - Abnormal levels of other serum enzymes Status: Acute (7) Acidosis: Code(s): E87.20 - Acidosis, unspecified Status: Acute Assessment and Plan: Patient presented with mixed respiratory metabolic acidosis Improved (8) Hypoglycemia: Code(s): E16.2 - Hypoglycemia, unspecified Status: Acute Assessment and Plan: resolved (9) Encephalopathy: Code(s): G93.40 - Encephalopathy, unspecified Status: Acute Assessment and Plan: positive for amphetamine and cannabinoid Patient was also hypoglycemic Head CT is negative (10) Drug abuse: Code(s): F19.10 - Other psychoactive substance abuse, uncomplicated Status: Acute Assessment and Plan: Negative for HIV and hepatitis screen Plan DVT prophylaxis. GI prophylaxis. All records reviewed Discussed plan of care with the nursing staff and with the patient in detail. Answered all questions and concerns from the patient. All labs have been reviewed. Code status updated also spoke to the family who is at bedside discussed all details dictation may have been done utilizing a voice recognition system. Attempts have been made to correct errors. However, there may be uncorrected grammatical, spelling, and recognition errors present. Time Spent With Patient Time with patient: 25 - 35 minutes Subjective Date/time seen: 04/30/22 12:37 Interval history: patient has no new complaints up on the chair drinking well still has some nonproductive cough Review of Systems Review of Systems: All systems reviewed & are unremarkable except as noted in HPI and below Exam Const: General: comfortable and no acute distress HENMT: Ears: TM's normal bilaterally Mouth: Yes moist mucous membranes Eyes: General: appearance normal, both eyes and all related structures Pupils: Equal, round and reactive pupils present Neck: Neck: supple and no JVD Resp: Effort & Inspection: normal respiratory effort Auscultation: clear to auscultation bilaterally Cardio: Rate: regular rate Rhythm: regular rhythm GI: GI Palp: Yes Soft to palpation Auscultation: normal bowel sounds Skin: General skin exam: normal color Neuro: General: deep tendon reflexes
[2022-04-30 15:40] LABS: Hematocrit 38.4 % (37.0-47.0); Hemoglobin 12.6 g/dL (12.0-15.0); Mean Corpuscular HGB Conc 32.8 g/dl (32-36); Mean Corpuscular Hemoglobin 30.4 pg (26-34); Mean Corpuscular Volume 92.8 fl (80-100); Mean Platelet Volume 10.7 fl (7.4-10.4); Platelet Count Result 240 k/mm3 (150-375); Red Blood Count 4.14 M/mm3 (4.2-5.4); Red Cell Distribution Width 12.8 % (11.5-14.5); White Blood Count 8.7 K/mm3 (4.5-10.0)
[2022-04-30 15:52] LABS: Alanine Aminotransferase 41 U/L (6-35); Albumin Level 3.9 g/dL (3.5-5.1); Alkaline Phosphatase 72 U/L (38-126); Anion Gap 6 mmol/L (8-16); Aspartate Amino Transferase 50 U/L (14-36); Bilirubin,Total 0.9 mg/dL (0.2-1.3); Blood Urea Nitrogen 8 mg/dL (7-17); Calcium 8.5 mg/dL (8.4-10.2); Carbon Dioxide 27 mmol/L (22-30); Chloride 109 mmol/L (98-107); Estimated CRCL calculation 117 ml/min; Estimated Glomerular Filt Rate > 60; Glucose 112 mg/dL (65-110); Potassium 3.5 mmol/L (3.4-5.0); Sodium 142 mmol/L (137-145)
[2022-04-30 16:37] LABS: Glucose Point of Care 84 mg/dl (65-105)
[2022-04-30 23:09] LABS: Glucose Point of Care 102 mg/dl (65-105)
[2022-05-01] VITALS (8 sets, daily range): BP systolic 95–110; BP diastolic 54–64; PULSE 57–115; RESP 16–18; TEMP 36.6–36.8; O2SAT 96–100
[2022-05-01 04:30] LABS: Hematocrit 36.2 % (37.0-47.0); Hemoglobin 11.9 g/dL (12.0-15.0); Mean Corpuscular HGB Conc 32.9 g/dl (32-36); Mean Corpuscular Hemoglobin 30.1 pg (26-34); Mean Corpuscular Volume 91.4 fl (80-100); Mean Platelet Volume 10.7 fl (7.4-10.4); Platelet Count Result 247 k/mm3 (150-375); Red Blood Count 3.96 M/mm3 (4.2-5.4); Red Cell Distribution Width 12.5 % (11.5-14.5); White Blood Count 8.9 K/mm3 (4.5-10.0)
[2022-05-01 04:53] LABS: Alanine Aminotransferase 35 U/L (6-35); Albumin Level 3.7 g/dL (3.5-5.1); Alkaline Phosphatase 64 U/L (38-126); Anion Gap 5 mmol/L (8-16); Aspartate Amino Transferase 39 U/L (14-36); Bilirubin,Total 0.5 mg/dL (0.2-1.3); Blood Urea Nitrogen 10 mg/dL (7-17); Calcium 8.5 mg/dL (8.4-10.2); Carbon Dioxide 27 mmol/L (22-30); Chloride 105 mmol/L (98-107); Creatine Kinase 178 U/L (30-135); Estimated CRCL calculation 117 ml/min; Estimated Glomerular Filt Rate > 60; Glucose 96 mg/dL (65-110); Magnesium 1.8 mg/dL (1.6-2.3); Potassium 3.4 mmol/L (3.4-5.0); Sodium 137 mmol/L (137-145)
[2022-05-01] MEDS: PANTOPRAZOLE SODIUM IV 40 MG VIAL IV PUSH (08:48)
[2022-05-01] MEDS: ENOXAPARIN 40 MG/0.4 ML SYRINGE SUB-Q (08:48)
--- NOTE | 2022-05-01 11:36 | PM.DS ---
DS: Admitting Diagnosis Discharge Date 05/01/22 Admitting Diagnosis Drug overdose cardiac arrest DS: Discharge Diagnosis Discharge Diagnosis (1) Drug abuse: Code(s): F19.10 - Other psychoactive substance abuse, uncomplicated Status: Acute (2) Encephalopathy: Code(s): G93.40 - Encephalopathy, unspecified Status: Acute (3) Elevated liver enzymes: Code(s): R74.8 - Abnormal levels of other serum enzymes Status: Acute (4) Acidosis: Code(s): E87.20 - Acidosis, unspecified Status: Acute (5) Acute respiratory failure: Code(s): J96.00 - Acute respiratory failure, unspecified whether with hypoxia or hypercapnia Status: Acute (6) Aspiration pneumonia: Code(s): J69.0 - Pneumonitis due to inhalation of food and vomit Status: Acute (7) Cardiac arrest: Code(s): I46.9 - Cardiac arrest, cause unspecified Status: Acute (8) Acute kidney injury: Code(s): N17.9 - Acute kidney failure, unspecified Status: Acute (9) Sepsis: Code(s): A41.9 - Sepsis, unspecified organism Status: Acute (10) Hypoglycemia: Code(s): E16.2 - Hypoglycemia, unspecified Status: Acute (11) Leukocytosis: Code(s): D72.829 - Elevated white blood cell count, unspecified Status: Acute DS: Summary Hospital Course Hospital Course: Patient 26-year-old female who came to the hospital for drug overdose. Patient was in a complete cardiac arrest CPR was prescribed. Patient was called by 911 when she was found unresponsive in the bathroom half naked. Patient was intubated and CPR protocol was applied patient was admitted to the ICU was noted to be in VFib patient was shocked x1 patient [place] [id number] pH of 7.[address] brain was normal CT neck was normal lungs showed pneumonia versus pulmonary edema could be secondary to aspiration patient was ordered also noted to have a slightly high troponin. The patient drug screen positive for amphetamines and marijuana. Patient was hypoglycemic during the ICU stays for which dextrose drip was started. Patient also on Zosyn for aspiration pneumonia sepsis protocol was followed. Hepatitis profile was negative HIV was negative. Patient was covered well is ready for discharge patient has Staph aureus growing which is sensitive to Cipro was treated for 7 days patient has been advised no drug use not even cannabis. Currently H and H is stable. Spoke to patient and patient's dad and patient grandfather in details. Patient has been very tearful and will restart patient on Lexapro which she was taking before coming to the hospital. Patient advised to follow up with psychiatrist as outpatient also advised therapy as outpatient also to follow up primary care in outpatient patient prescriptions have been sent to the pharmacy. Time spent discussing smoking cessation with patient: more than 10 minutes Status at Discharge Functional status at discharge: independent ambulation Time Spent with Patient Time attestation: Total time spent providing and/or coordinating discharge services: Time spent: Greater than 30 minutes Exam Narrative: GENERAL: Well appearing, well-nourished, non-toxic, in no acute distress. HEAD: Normocephalic, atraumatic. NECK: Supple. No adenopathy, no masses. RESPIRATORY: Airway patent, respirations nonlabored. Clear to auscultation bilaterally, no rales, rhonchi, wheezing. CARDIOVASCULAR: Regular rate and rhythm without murmurs, rubs, or gallops. Peripheral pulses 2+ and equal bilaterally. ABDOMINAL: Soft, nontender, nondistended, no hepatosplenomegaly. Normoactive BS. MUSCULOSKELETAL: no Epigastric and no hypochondrial tenderness SKIN: Warm, dry, normal color. No rashes. NEURO: A&O X3. Moves all extremities PSYCHIATRIC: Appropriate mood and affect. Normal interaction. DS: Data Data Completed and Pending Labs on day of discharge: Labs from last 24 ho
== END 2022-05-01 14:32 | disposition home or self-care (01) | DRG 812 ==
LOC: ANHED 10:15 → ANHICU 10:29 → ANHIMU 04-28 17:06
PROVIDERS: Internal Medicine; Admitting Provider Student in an Organized Health Care Education/Training Program; Emergency Provider Emergency Medicine; Visit Provider Internal Medicine
DX: T50.901A Poisoning by unspecified drugs, medicaments and biological substances, accidental (unintentional), initial encounter (principal); J96.00 Acute respiratory failure, unspecified whether with hypoxia or hypercapnia; I46.8 Cardiac arrest due to other underlying condition; J69.0 Pneumonitis due to inhalation of food and vomit; A41.9 Sepsis, unspecified organism; G92.8 Other toxic encephalopathy; N17.9 Acute kidney failure, unspecified; E87.20 Acidosis, unspecified; F19.10 Other psychoactive substance abuse, uncomplicated; Z20.822 Contact with and (suspected) exposure to COVID-19
CPT/HCPCS: 31500; 36415; 36600; 51702; 70450; 71045; 72125; 74176; 76775; 80048; 80053; 80074; 80307; 81001; 81025; 82375; 82550; 82570; 82805; 82948; 83050; 83605; 83690; 83735; 84300; 84443; 84484; 85025; 85027; 85610; 85730; 86703; 87040; 87070; 87077; 87086; 87147; 87181; 87186; 87205; 87637; 92950; 93005; 94003; 96361; 96365; 96366; 96367; 96375; 96376; 97161; 97165; 99285; A9270; C8929; C9113; G0432; J0171; J0692; J1650; J1956; J2250; J2310; J2543; J3010; J7030; J7120; J7121; Q9957